=== PATIENT | female | born 1945 | race Caucasian/White ===

== ENCOUNTER 2019-01-14 06:47 | Inpatient (IN) ==
[2019-01-14] MEDS ORDERED: ASPIRIN PO ONE (07:39)
--- NOTE | 2019-01-14 08:03 | Diag Imaging Result Doc PS360 ---
EXAM: CHEST-2 VIEWS HISTORY: CP TECHNIQUE: Chest two views COMPARISON: 07/19/2016 FINDINGS: The lungs are well expanded. The heart is borderline mildly prominent. The vessels are not distended. There are no infiltrates. No pleural effusions. There is a granuloma in the mid right lung. Degenerative bone spurring throughout the thoracic spine. IMPRESSION: Mildly prominent heart Electronically signed by Kirby Meneses 01/14/2019 8:01 AM
[2019-01-14 08:37] LABS: BASO# 0.01 X1000 (0.0-0.2); BASO% 0.2 % (0.0-0.8); EOS# 0.01 X1000 (0.0-0.7); EOS% 0.2 % (0.0-10.0); HEMATOCRIT 31.3 % (37.0-47.0); HEMOGLOBIN 10.4 g/dL (12.0-16.0); IMM GRAN# 0.03 X1000 (0.0-0.04); IMM GRAN% 0.5 % (0.0-0.5); LYMPH# 1.57 X1000 (1.2-3.4); LYMPH% 25.4 % (20.5-51.1); MCH 28.7 PG (27-31); MCHC 33.2 g/dL (33-37); MCV 86.5 FL (81-99); MONO% 17.8 % (1.7-9.3); MPV 10.5 FL (7.4-10.4); NEUT# 3.46 X1000 (1.4-6.5); NEUT% 55.9 % (42.2-75.2); PLT 118 X1000 (130-400); RBC 3.62 XMIL (4.2-5.4); RDW 13.3 % (11.5-14.5); WBC 6.18 X1000 (4.8-10.8)
[2019-01-14 08:45] LABS: INR 0.98; PROTIME 13.7 Seconds (11.0-16.0)
[2019-01-14 08:46] LABS: PTT 42.5 Seconds (22.3-41.8)
[2019-01-14 09:16] LABS: ALB/GLOB RATIO 2.3; ALBUMIN 4.2 g/dL (3.5-5.0); CALCIUM 9.1 mg/dL (8.8-10.2); POTASSIUM 4.3 mmol/L (3.5-5.1); TOTAL BILIRUBIN 0.49 mg/dL (0.20-1.00)
--- NOTE | 2019-01-14 09:18 | EKG Report ---
Test Performed on : 01/14/2019 08:24:08 AM Test Reason : CHEST PAIN Blood Pressure : / mmHG Vent. Rate : 062 BPM Atrial Rate : 062 BPM P-R Int : 186 ms QRS Dur : 122 ms QT Int : 470 ms P-R-T Axes : 034 -36 -26 degrees QTc Int : 477 ms Normal sinus rhythm. Left axis deviation Left ventricular hypertrophy with QRS widening and repolarization abnormality Abnormal ECG When compared with ECG of 29-JUN-2016 11:13, Vent. rate has decreased BY 44 BPM T wave inversion now evident in Inferior leads T wave inversion now evident in Anterior leads T wave inversion no longer evident in Lateral leads Unconfirmed Result
[2019-01-14] MEDS ORDERED: NS 2,000 ML MISC PRN (10:44)
[2019-01-14] MEDS ORDERED: HEPARIN IV PRN (10:44)
--- NOTE | 2019-01-14 11:21 | PROVIDER DOCUMENTATION ---
This chart was entered by Neo Mojica Scribe, acting as scribe for Ruchi Lynch MD. HPI-Chest Pain - General Source: patient - History of Present Illness-CP Chest Pain Radiation: reports: no radiation Quality of Pain: reports: sharp Severity in ED: mild Onset/Duration: other (yesterday) Timing: gone now <Ruchi Lynch - Last Filed: 01/14/19 11:21> <Adrian Reynolds - Last Filed: 01/14/19 17:35> - General Chief Complaint: Chest Pain Stated Complaint: cp Time Seen by Provider: 01/14/19 08:09 Allergies/Adverse Reactions: Patient Allergies Allergy/AdvReac Type Severity Reaction Status Date / Time zinc [Zinc] Allergy Intermediate HIVES Verified 05/29/13 11:42 Penicillins Allergy Unknown Unknown Verified 05/29/13 11:42 Home Medications: Home Medication List Medication Instructions Recorded Confirmed Last Taken Type Pantoprazole [Protonix] 40 mg PO DAILY@0700 06/28/16 06/28/16 06/28/16 07:00 History Benzonatate [Tessalon] 100 mg PO TID #0 capsule 07/21/16 Unknown Rx Calcium Acetate [Phoslo] 667 mg PO TID CC #0 tablet 07/21/16 Unknown Rx Docusate Sodium [Colace] 100 mg PO BID #0 capsule 07/21/16 Unknown Rx Ertapenem [Invanz] 0.5 gm IV DAILY #2 g 07/21/16 Unknown Rx Guaifenesin/Dm [Robitussin-Dm] 10 ml PO Q4H PRN PRN #0 bottle 07/21/16 Unknown Rx Levalbuterol Neb [Xopenex Neb] 0.63 mg INH RTQ4H #0 neb 07/21/16 Unknown Rx Levothyroxine [Synthroid] 50 microgm PO DAILY@0700 #0 tablet 07/21/16 Unknown Rx Polyethylene Glycol 3350 [Miralax] 17 gm PO DAILY #0 powder, packet 07/21/16 Unknown Rx Sennosides [Senokot] 1 each PO BID #0 tablet 07/21/16 Unknown Rx Tramadol [Ultram] 50 mg PO Q6H PRN PRN #20 tablet 07/21/16 Unknown Rx - History of Present Illness-CP Nature of Presenting Problem: 73 yof presents to ed with c/o of midsternal sharp cp yesterday at 1400. Reports had diaphoresis. States pain is gone now and it only last about 3 to 4 minutes yesterday. States went to dialysis this morning and they encouraged her to come get it checked out. Denies any n,v,sob or cp at this time. (Ruchi Lynch) Review of Systems - Adult - REVIEW OF SYSTEMS - ADULT Constitutional: reports: other (diaphoresis). denies: chills, fever, fatique Eyes: reports: no symptoms reported Ears, Nose, Mouth & Throat: reports: no symptoms reported Cardiovascular: reports: chest pain. denies: irregular heart rate, orthopnea, syncope Respiratory: denies: cough, shortness of breath, wheezing Gastrointestinal: denies: abdominal pain, nausea, vomiting Genitourinary: reports: no symptoms reported Musculoskeletal: reports: no symptoms reported Integumentary: reports: no symptoms reported Neurological: denies: dizziness/vertigo, headache/migraines Psychiatric: reports: no symptoms reported Endocrine: reports: no symptoms reported Hematologic/Lymphatic: reports: no symptoms reported Allergic/Immunologic: reports: no symptoms reported All Other Systems: Reviewed and Negative <Ruchi Lynch - Last Filed: 01/14/19 11:21> Past History - Adult - PAST MEDICAL HISTORY-ADULT Review of Records: reports: Nursing Assessment Review, Medications Reviewed Cardiovascular: reports: HTN Endocrine/Immune: reports: Diabetes - PRIOR SURGERIES/PROCEDURES Surgical/Procedure History: reports: cholecystectomy, hysterectomy - IMMUNIZATION STATUS Childhood Immunizations: See Nurse Assessment Flu Vaccine: See Nurse Assessment - FAMILY HISTORY Family History: reviewed, not pertinent - SOCIAL HISTORY Smoking: non-smoker Substance Use: none/never <Ruchi Lynch - Last Filed: 01/14/19 11:21> Physical Exam-General - PHYSICAL EXAM-ADULT Initial Vital Signs Reviewed: Yes - CONSTITUTIONAL General Appearance: appears well, alert, no apparent distress - EYES Eyes: PERRL/EOMI, pink conjunctivae - NECK Neck: non-tender, full range of motion, supple, normal inspection - RESPIRATORY Respiratory: chest non-tender, lungs clear, normal breath sounds, no pleuratic chest pain, no respiratory distress, no accessory muscle use - CARDIOVASCULAR Cardiovascular: regular rate, rhythm, no edema, no gallop, no JVD, no murmur - GASTROINTESTINAL (ABDOMEN) Abdominal Exam: non tender, soft, no organomegaly, no pulsatile mass - MUSCULOSKELETAL Extremity: normal range of motion, pedal edema (1+ pitting BLE) - SKIN Integumentary: normal color, normal turgor, warm/dry - NEUROLOGIC Neurologic: grossly normal - PSYCHIATRIC Psych/Mental Status: normal mood/affect, normal thought content, normal thought process, oriented x 3 <Ruchi Lynch - Last Filed: 01/14/19 11:21> Progress - EKG 1 Time of EKG reading by physician:: 08:24 EKG Read and Signed by:: Ruchi Lynch EKG Interpretation (*Must complete 3 of following elements*): Abnormal Rate: 62 Rhythm: nsr Leon: left QRS: LVH (with QRS widening and repolarization abnormality) ST Wave: normal - XRAY 1 XRAY: Bilateral XRAY Study: Chest Impression: Abnormal, See EMR Report ( EXAM: CHEST-2 VIEWS HISTORY: CP TECHNIQUE: Chest two views COMPARISON: 07/19/2016 FINDINGS: The lungs are well expanded. The heart is borderline mildly prominent. The vessels are not distended. There are no infiltrates. No pleural effusions. There is a granuloma in the mid right lung. Degenerative bone spurring throughout the thoracic spine. IMPRESSION: Mildly prominent heart Electronically signed by Kirby Meneses 01/14/2019 8:01 AM 01/14/19 0801 Interpreting Physician: Kirby Meneses MD Dictated Date/Time: 01/14/19 0800 cc: Yolanda Tejada MD; Georgina Calderon) <Ruchi Lynch - Last Filed: 01/14/19 11:21> - PLAN OF CARE/RESULTS Result Diagrams: 01/14/19 08:25 01/14/19 08:25 - CT/MRI 1 CT Study: Abdomen, Pelvis Impression: Abnormal (FINDINGS: There is a common bile duct stent with pneumobilia. There is fatty infiltration. The gallbladder has been removed. There are scattered splenic granuloma. Fatty infiltration of the pancreas. Normal adrenal glands. There is a tiny nonobstructing left lower pole renal stone and there are small scattered renal cysts. No hydronephrosis. No aortic aneurysm. There is stool throughout the mid and distal colon. Questionable thickening to the wall of the proximal colon although it is not distended. No abscess. The uterus has been removed. No pelvic mass. The urinary bladder is distended and is normal. There are degenerative spine changes with multilevel spinal stenosis inferiorly. IMPRESSION: 1.Fatty infiltration of the liver 2.Cholecystectomy with a common bile duct stent and pneumobilia 3.Nonobstructing left renal stone 4.Possible thickening to the wall of the proximal colon 5.Hysterectomy This exam was performed using automated exposure control, adjustment of mA or kV according to patient size, and/or use of iterative reconstruction technique. Electronically signed by Kirby Meneses 01/14/2019 4:28 PM) - CONSULTS/PCP/HOSPITALIST Notification #1 *Consult/PCP/Hospitalist*: Dr. Clemente Time Discussed: 17:35 Reason/Comments: Admission <Adrian Reynolds - Last Filed: 01/14/19 17:35> - PLAN OF CARE/RESULTS Progress/Plan/Lab Results: Vital Signs - 8 hr 01/14/19 09:40 01/14/19 09:50 01/14/19 10:00 Pulse Rate 64 61 61 Respiratory Rate 24 18 18 Blood Pressure O2 Sat by Pulse Oximetry 98 97 96 01/14/19 10:03 01/14/19 10:10 01/14/19 10:20 Pulse Rate 66 67 62 Respiratory Rate 26 H 20 19 Blood Pressure 146/73 O2 Sat by Pulse Oximetry 98 97 98 01/14/19 10:30 01/14/19 10:33 01/14/19 10:40 Pulse Rate 64 63 63 Respiratory Rate 16 17 19 Blood Pressure 150/70 O2 Sat by Pulse Oximetry 97 98 97 01/14/19 10:50 01/14/19 11:00 01/14/19 11:03 Pulse Rate 64 67 63 Respiratory Rate 32 H 16 17 Blood Pressure 147/72 O2 Sat by Pulse Oximetry 96 99 98 01/14/19 11:10 01/14/19 11:20 01/14/19 11:30 Pulse Rate 62 62 66 Respiratory Rate 17 19 22 Blood Pressure O2 Sat by Pulse Oximetry 97 98 99 01/14/19 11:33 01/14/19 12:03 01/14/19 16:14 Pulse Rate 64 83 71 Respiratory Rate 24 20 15 Blood Pressure 142/66 175/120 146/60 O2 Sat by Pulse Oximetry 96 97 90 L 01/14/19 16:15 Pulse Rate 71 Respiratory Rate 18 Blood Pressure O2 Sat by Pulse Oximetry 100 Laboratory Results - last 24 hr 01/14/19 01/14/19 01/14/19 08:25 08:25 08:25 WBC 6.18 RBC 3.62 L Hgb 10.4 L Hct 31.3 L MCV 86.5 MCH 28.7 MCHC 33.2 RDW Std Deviation 13.3 Plt Count 118 L MPV 10.5 H Immature Gran % (Auto) 0.5 Neut % (Auto) 55.9 Lymph % (Auto) 25.4 [place] % (Auto) 17.8 H Eos % (Auto) 0.2 Baso % (Auto) 0.2 Immature Gran # (Auto) 0.03 Neut # (Auto) 3.46 Lymph # (Auto) 1.57 [place] # (Auto) 1.10 H Eos # (Auto) 0.01 Baso # (Auto) 0.01 PT INR PTT (Actin FS) Sodium 142 Potassium 4.3 Chloride 106 Carbon Dioxide 24 L Anion Gap 12 BUN 27 H Creatinine 3.0 H Estimated GFR/1.73 m2 15 BUN/Creatinine Ratio 9 Glucose 156 H Calculated Osmolality 291 Calcium 9.1 Total Bilirubin 0.49 AST 786 H ALT 583 H Alkaline Phosphatase 185 H Creatine Kinase 45 Troponin T Ovq-F-Awjxnfucyhw Pept 4001 H Total Protein 6.0 L Albumin 4.2 Globulin 1.8 Albumin/Globulin Ratio 2.3 01/14/19 01/14/19 08:25 08:25 WBC RBC Hgb Hct MCV MCH MCHC RDW Std Deviation Plt Count MPV Immature Gran % (Auto) Neut % (Auto) Lymph % (Auto) [place] % (Auto) Eos % (Auto) Baso % (Auto) Immature Gran # (Auto) Neut # (Auto) Lymph # (Auto) [place] # (Auto) Eos # (Auto) Baso # (Auto) PT 13.7 INR 0.98 PTT (Actin FS) 42.5 H Sodium Potassium Chloride Carbon Dioxide Anion Gap BUN Creatinine Estimated GFR/1.73 m2 BUN/Creatinine Ratio Glucose Calculated Osmolality Calcium Total Bilirubin AST ALT Alkaline Phosphatase Creatine Kinase Troponin T < 0.010 Szi-E-Tzydepmwybk Pept Total Protein Albumin Globulin Albumin/Globulin Ratio Orders Category Date Time Status Cardiac Monitoring DIRECTED Care 01/14/19 07:39 Active Dialysate Bath: DIRECTED Care 01/14/19 10:44 Completed Dialysate Flow: DIRECTED Care 01/14/19 10:44 Completed Dialysis Blood Flow: DIRECTED Care 01/14/19 10:44 Completed Dialysis Machine Settings: DIRECTED Care 01/14/19 10:44 Completed Dialysis Treatment Time: DIRECTED Care 01/14/19 10:44 Completed Dialysis Treatment Weight ROUTINE Care 01/14/19 10:44 Active Dialysis UF Removal Amount: DIRECTED Care 01/14/19 10:44 Completed Dialyzer Type: DIRECTED Care 01/14/19 10:44 Completed NRSG - Obtain Dialysis Consent NOW Care 01/14/19 10:44 Completed Oxygen Therapy- ED Nursing DIRECTED Care 01/14/19 07:39 Active Saline Loc NOW Care 01/14/19 07:39 Active CHEST-2 VIEWS [RAD] Stat Exams 01/14/19 07:[address] ABDOMEN/PELVIS W/O CONTRAST [CT] Stat Exams 01/14/19 16:09 Completed CBC WITH ELECTRONIC DIFF [HEME] Stat Lab 01/14/19 08:25 Completed CK PROFILE [SP CHEM] Stat Lab 01/14/19 08:25 Completed COMPREHENSIVE METABOLIC PANEL [CHEM] Stat Lab 01/14/19 08:25 Completed PRO B-NATRIURETIC PEPTIDE Stat Lab 01/14/19 08:25 Completed PROTIME WITH INR [COAG] Stat Lab 01/14/19 08:25 Completed PTT [COAG] Stat Lab 01/14/19 08:25 Completed TROPONIN T Stat Lab 01/14/19 08:25 Completed TROPONIN T Stat Lab 01/14/19 17:33 Uncollected 0.9% Sodium Chloride Inj [Ns] 2,000 ml Med 01/14/19 10:44 Discontinued MISC As Directed mls/hr Aspirin Med 01/14/19 07:39 Discontinued 325 mg PO NOW ONE Heparin Med 01/14/19 10:44 Discontinued 3,000 unit IV BOLUS PRN CP/SOB/Palp >45 yrs of Age Stat Oth 01/14/19 07:39 Ordered EKG [EKG] Stat Ther 01/14/19 06:49 Draft Departure <Ruchi Lynch - Last Filed: 01/14/19 11:21> - Departure Date of Disposition Decision: 01/14/19 Time of Disposition Decision: 17:35 Certified Medical Emergency: Emergent - Critical Care Note This patient required my direct & personal management of CC.: No <Adrian Reynolds - Last Filed: 01/14/19 17:35> - Departure DIAGNOSIS: Transaminitis Disposition: ADMITTED INPATIENT 09 Condition: Stable Referrals and Follow-Ups: Georgina Calderon [Primary Care Provider] - Attestation - Physician/ WANDA Attestation Patient care was provided by Advanced Practice Provider:: No The physician spent face to face time with patient:: Yes Advanced Practice Provider documentation review:: Supervising physician onsite and consulted in the evaluation and care of this patient. The physician did have a face to face encounter with the patient. <Ruchi Lynch - Last Filed: 01/14/19 11:21> This chart was documented by the indicated scribe, (Neo Mojica Scribe) and accurately reflects the services I performed and decisions made by me, Ruchi Lynch MD, as attested by the provider's signature.
--- NOTE | 2019-01-14 15:03 | NEPHROLOGY CONSULTATION ---
DATE: 01/14/2019 REASON FOR ADMISSION: Chest pain. DATE OF CONSULT: 01/14/2019. CONSULTING PHYSICIAN: Consulting physician is. Lynch. REASON FOR CONSULT: End-stage renal disease with assistance with medical management. HISTORY OF PRESENT ILLNESS: Ms. Hill is a 73-year-old white female who is currently resting quietly on a stretcher. States that she had some chest pain this morning upon arrival to her dialysis treatment. Due to these findings, she was transferred to [facility] for monitoring and evaluation. She states that this has been ongoing coming and going with a previous echo that was essentially negative approximately 3 months ago. She has been evaluated by Dr. Lynch. They are currently doing serial enzymes with EKGs. Chest x-ray was essentially negative. She described this midsternal chest pain with onset yesterday at 2 p.m. She reports that she did have some diaphoresis. The pain is gone. It lasted approximately 3 to 4 minute yesterday and only 3 to 4 minutes this a.m. She denies any fever or chills. No nausea, vomiting or diarrhea. No increased work of breathing. No increased lower extremity swelling. No hemoptysis, hematochezia or hematuria. PAST MEDICAL HISTORY: End-stage renal disease with hemodialysis on Monday, Monday, Monday at the [facility]. The patient is positive for anemia of chronic disease, osteodystrophy of chronic disease, hypertension, hyperlipidemia, hypothyroidism, constipation, chronic pain. PAST SURGICAL HISTORY: She reports having a cholecystectomy, hysterectomy, right tunnel catheter to the right chest wall. FAMILY HISTORY: No history of end-stage renal disease. SOCIAL HISTORY: She lives with her family. Nonsmoker. Denies alcohol or illicit drug use. ALLERGIES: Listed as zinc and penicillins. HOME MEDICATIONS: Have yet to be reconciled. Listed in the ER asL Protonix, Tessalon Perles, PhosLo, Colace, Invanz, Robitussin DM, Xopenex, Synthroid MiraLAX, Senokot and Ultram. REVIEW OF SYSTEMS: Review of systems x 10 with pertinent positives listed above in the HPI. VITAL SIGNS: The patient's most recent vital signs this a.m.: Previous temperature of 98.6, blood pressure this a.m. 142/77, heart rate is 63. She is breathing 14 per minute on the monitor. She appears to be in sinus rhythm. She is on room air. Last recorded saturation is 96%. She has had 0 recorded in or out. LABORATORY: Her most recent labs this a.m.: Sodium is 142, potassium 4.3, chloride 106, CO2 24, BUN 27, creatinine 3, glucose is 156. She has an anion gap of 12. Her calcium is 9.1, albumin of 4.2. White count 6.18, hemoglobin 10.4, hematocrit 31.3 with a platelet count of 118,000. Her ProTime is 13.7, INR 0.98, PTT 42.5. Chest x-ray on admission this a.m. shows mildly prominent heart. EKG this a.m. shows normal sinus rhythm. She does have slight T-wave inversion in the inferior leads and anterior leads, along with lateral leads. PHYSICAL EXAMINATION: General: This is a 73-year-old white female resting quietly on a stretcher in the emergency room. She denies any chest pain or increased work of breathing. She is in no acute distress. Skin: Warm and dry. HEENT: Normocephalic, atraumatic. Conjunctiva is pale pink she has JERAMY. Mucous membranes are dry. Neck: Supple. Trachea midline. No evidence of JVD in the upright position. Cardiovascular: She has sinus rhythm on the monitor, S1, S2 noted. No murmur or gallop. Lungs: Clear to auscultation anteriorly. Equal excursion on room air. Abdomen: Large, round, soft, nontender. Positive bowel sounds. Genitourinary not inspected. Minimal void with dialysis assist. Extremities: Have no edema. No clubbing or cyanosis. Neurologic: She is alert and oriented x 3. ASSESSMENT AND PLAN: 1. Chronic kidney disease stage 5D. The patient is due for her routine dialysis treatment this a.m. No indications for further intervention. We will dialyze her on a 2 K bath. She is to dialyze for 3 hours. We will attempt to pull her to her outpatient dry weight. 2. Electrolytes and acid-base balance. These are acceptable. 3. Anemia. This is acceptable. 4. Chest pain with increased work of breathing. This is being monitored and evaluated by the primary care in the emergency room. I would like to thank you for allowing us to follow with this patient. Dictated by SALVATORE Ramirez for Leonidas Howard MD Face to face encounter, data reviewed, discussed with Tabatha Joyce on 01/14/19. I agree with the above assessment and plan of care. cc: SALVATORE Ramirez MD [facility]
--- NOTE | 2019-01-14 16:30 | Diag Imaging Result Doc PS360 ---
EXAM: CT ABDOMEN/PELVIS W/O CONTRAST HISTORY: elevated LFTs, ap TECHNIQUE: CT abdomen and pelvis without contrast COMPARISON: 06/28/2016 FINDINGS: There is a common bile duct stent with pneumobilia. There is fatty infiltration. The gallbladder has been removed. There are scattered splenic granuloma. Fatty infiltration of the pancreas. Normal adrenal glands. There is a tiny nonobstructing left lower pole renal stone and there are small scattered renal cysts. No hydronephrosis. No aortic aneurysm. There is stool throughout the mid and distal colon. Questionable thickening to the wall of the proximal colon although it is not distended. No abscess. The uterus has been removed. No pelvic mass. The urinary bladder is distended and is normal. There are degenerative spine changes with multilevel spinal stenosis inferiorly. IMPRESSION: 1.Fatty infiltration of the liver 2.Cholecystectomy with a common bile duct stent and pneumobilia 3.Nonobstructing left renal stone 4.Possible thickening to the wall of the proximal colon 5.Hysterectomy This exam was performed using automated exposure control, adjustment of mA or kV according to patient size, and/or use of iterative reconstruction technique. Electronically signed by Kirby Meneses 01/14/2019 4:28 PM
--- NOTE | 2019-01-14 19:01 | HISTORY AND PHYSICAL ---
CHIEF COMPLAINT: Epigastric pain. HISTORY OF PRESENT ILLNESS: This is a 73-year-old female with a history of end- stage renal disease, on hemodialysis, diabetes mellitus type 2, hypertension, and hypothyroid. She presented to the emergency room on the instruction of the dialysis clinic. The patient stated that yesterday evening, she was sitting in a chair and had an onset of epigastric pain. She said it felt like "I was all cramped up in there". She pointed to her epigastric area to her right upper quadrant. She stated that this lasted 3 to 4 minutes. She had no accompanying symptoms. She did state that she took 2 Tums and the pain went away within a few minutes after taking the Tums. She denies any recurrence of pain, any palpitations, syncope, dizziness, any fevers or chills, any nausea, vomiting, diarrhea, black or bloody vomitus or stools. PAST MEDICAL HISTORY: 1. End-stage renal disease, with hemodialysis Monday, Monday, Monday. 2. Anemia of chronic disease. 3. Osteodystrophy of chronic disease. 4. Hypertension. 5. Hyperlipidemia. 6. Hypothyroid. 7. Constipation. 8. Chronic pain. PAST SURGICAL HISTORY: 1. Cholecystectomy. 2. Hysterectomy. 3. Right tunnel catheter. SOCIAL HISTORY: She lives with family. She denies alcohol, tobacco, or illicit drug use. ALLERGIES: Zinc and penicillin. HOME MEDICATIONS: A list will be obtained by the nursing staff and once verified, will review and restart as appropriate. REVIEW OF SYSTEMS: Discussed with the patient with pertinent positives as stated in the HPI. She denied any syncope, dizziness, palpitations, any nausea, vomiting, diarrhea, constipation, black or bloody vomitus or stools, any hematuria, dysuria, frequency, urgency. PHYSICAL EXAMINATION: GENERAL: This is a 73-year-old female who is lying on the stretcher in no distress. VITAL SIGNS: Blood pressure is 146/60 with a heart rate of 71, respirations are 18, temperature is 98.6 degrees, with O2 saturations 98 to 100 percent. HEENT: Eyes: Pupils are equal, round, and react to light. EOMs are intact. Sclerae are anicteric. Head is normocephalic, atraumatic. Mucous membranes are dry. NECK: Supple with trachea midline. CARDIOVASCULAR: Regular rate and rhythm. S1 and S2 appreciated. No murmur. No gallop. EXTREMITIES: She has no lower extremity edema. Bilateral calves are nontender to palpation. Peripheral pulses are palpable x4 extremities. PULMONARY: Breath sounds are clear with no increased work of breathing noted. Chest rises and falls symmetrically with respiration. Chest wall is nontender to palpation. GASTROINTESTINAL: Abdomen is soft. She has some epigastric tenderness to palpation. She is nondistended with bowel sounds in all 4 quadrants. GENITOURINARY: She has no CVA nor suprapubic tenderness. NEUROLOGIC: She is alert and oriented x3. SKIN: Warm and dry. LABS: WBC is 6.1 with hemoglobin 10.4, hematocrit 31.3, and platelets of 118,000. INR 0.98. Sodium 142, potassium 4.3, BUN 27, creatinine 3, with a glucose of 156. Total bilirubin is 0.49, AST 786, ALT 583, and alkaline phosphatase 185. Troponin is less than 0.010, with a proBNP of 4000. Chest x-ray reveals mildly prominent heart. CT of the abdomen and pelvis reveals fatty infiltration of the liver, cholecystectomy, with a common bile duct stent and pneumobilia, nonobstructing left renal stone, possible thickening to the wall of the proximal colon, and hysterectomy. ASSESSMENT AND PLAN: 1. Epigastric pain. The patient stated that she had chest pain on arrival to the emergency room, but when asked to point to the area of the pain, she points epigastric. She is tender to palpation. Her first troponin was negative. Stat cardiac profile and troponin now and repeat in 8 hours. Continue her home proton pump inhibitor. 2. Hypothyroid. We will check a TSH and once medications are identified, will continue. 3. Diabetes mellitus type 2. Place on patterned blood glucose with sliding scale insulin. 4. Hypertension. Will continue her medication as appropriate. 5. Hyperlipidemia. The patient is on Crestor as she did have elevated liver function tests. We will hold this at present. 6. Elevated liver function tests. Will continue with hydration. Will hold her Crestor. Repeat labs in the morning. 7. End-stage renal disease, on Monday, Monday, Monday hemodialysis. Further treatments pending hospital course. Dictated by SALVATORE Morgan for Sae Clemente MD cc: SALVATORE Morgan MD [facility]
--- NOTE | 2019-01-14 19:52 | HISTORY AND PHYSICAL ---
WNOX-AM-NROD ENCOUNTER: Ms. Leatha Hill is a 73-year-old female, who has a history of multiple medical conditions, including end-stage renal disease, hypertension, hyperlipidemia, hypothyroidism as well as chronic pain. The patient was admitted to the ED because of chest pain which seemed to be more like epigastric pain. She did have hemodialysis earlier today. EXAMINATION: Vital Signs: Blood pressure is 146/68, pulse is 71, respiratory rate is 15, temperature 98.6. Cardiovascular: S1, S2 with possible systolic murmur. Respiratory: Good air entry bilaterally. No rales or rhonchi noted. Abdomen: Soft, nontender. No masses felt. LABORATORY DATA: Initial troponin less than 0.01, proBNP level is 4001. AST is 786, ALT 585, alkaline phosphatase 185. ASSESSMENT: 1. Atypical chest pain. 2. Abnormal liver function test. 3. End-stage renal disease, on hemodialysis. 4. Hypothyroidism. 5. Hyperlipidemia. PLAN: 1. With regards to her chest pain, we will place her on telemetry, get serial cardiac enzymes. The patient did have a recent exercise cardiac stress test done May 2018 which was normal, consider cardiology evaluation. 2. With regards to abnormal LFTs obtain a hepatitis panel, HAYDEN level, ferritin level, and also abdominal ultrasound. All other medical conditions will be addressed accordingly. cc: Sae Clemente MD MTDD
[2019-01-14] MEDS: ATARAX PO SCH (21:37)
[2019-01-14] MEDS: HUMALOG SUBQ SCH (21:38)
[2019-01-14] MEDS: PROTONIX PO SCH (21:38)
[2019-01-14] MEDS ORDERED: TYLENOL PO ONE (21:52)
[2019-01-15] MEDS: HUMALOG SUBQ SCH ×4 (06:23→21:56)
[2019-01-15] MEDS: SYNTHROID PO SCH (06:23)
--- NOTE | 2019-01-15 07:04 | EKG Report ---
Test Performed on : 01/15/2019 06:48:20 AM Test Reason : cp, epigastric pain Blood Pressure : / mmHG Vent. Rate : 064 BPM Atrial Rate : 064 BPM P-R Int : 184 ms QRS Dur : 120 ms QT Int : 486 ms P-R-T Axes : 041 -39 026 degrees QTc Int : 501 ms Normal sinus rhythm. Left axis deviation Left ventricular hypertrophy with QRS widening Cannot rule out Septal infarct , age undetermined Abnormal ECG When compared with ECG of 14-JAN-2019 08:24, (Unconfirmed) T wave inversion less evident in Inferior leads Nonspecific T wave abnormality, worse in Lateral leads Confirmed by Sukhdev VELASQUEZ, Chuy Koo ([id number]) on 01/15/2019 9:07:12 AM
[2019-01-15 07:16] LABS: HEMATOCRIT 32.7 % (37.0-47.0); HEMOGLOBIN 10.6 g/dL (12.0-16.0); MCH 28.6 PG (27-31); MCHC 32.4 g/dL (33-37); MCV 88.4 FL (81-99); MPV 10.9 FL (7.4-10.4); RBC 3.7 XMIL (4.2-5.4); RDW 13.3 % (11.5-14.5); WBC 4.98 X1000 (4.8-10.8)
[2019-01-15 07:42] LABS: CALCIUM 8.4 mg/dL (8.8-10.2); CREATININE 2.7 mg/dL (0.5-0.9); PHOSPHORUS 2.9 mg/dL (2.7-4.5); POTASSIUM 3.3 mmol/L (3.5-5.1)
[2019-01-15 08:10] LABS: URINE SOURCE CLEAN CATCH
[2019-01-15 08:15] LABS: BILIRUBIN URINE NEGATIVE (NEGATIVE); BLOOD URINE MODERATE (NEGATIVE); COLOR YELLOW; GLUCOSE URINE NEGATIVE (NEGATIVE); KETONE URINE NEGATIVE (NEGATIVE); LEUKOCYTES URINE LARGE (NEGATIVE); NITRITE URINE NEGATIVE (NEGATIVE); PH URINE 7.5; PROTEIN URINE 50 mg/dL (NEGATIVE); SP GRAVITY URINE 1.014; TURBIDITY URINE HAZY (CLEAR); UROBILINOGEN URINE 4 mg/dL (NORMAL)
[2019-01-15 08:17] LABS: UR EPITHELIAL CELLS <10 /HPF (<10); URINE BACTERIA 4+ /HPF; URINE RBC <10 /HPF (<10); URINE WBC TNTC /HPF (<10)
[2019-01-15] MEDS: FLONASE NAS SCH (09:36)
[2019-01-15] MEDS: PROTONIX PO SCH ×3 (09:37→21:57)
--- NOTE | 2019-01-15 10:27 | GASTROENTEROLOGY CONSULTATION ---
DATE: 01/15/2019 REASON FOR CONSULTATION: Substernal chest pain, abnormal LFTs. HISTORY OF PRESENT ILLNESS: Ms. Leatha Hill is a 73-year-old woman with past medical history significant for hypertension, end-stage renal disease on hemodialysis, noninsulin-dependent diabetes, hyperlipidemia, hypothyroidism, anemia of chronic disease, status post cholecystectomy, history of colon polyps, and atypical chest pain, who presented with acute chest pain that started while walking in the mall on Monday afternoon. She describes having substernal chest pressure, like squeezing, with associated shortness of breath and dizziness while walking in the mall on Mother's Day. She said the pain lasted for approximately 12 to 15 minutes. She has had 3 episodes that have been similar in the last 2 weeks. Her pain is sometimes improved with taking Tums. She has been seen by Cardiology in the past, and had a normal stress test last year, and was told that her symptoms are likely related to reflux disease. She denies any nausea, vomiting, fevers, change in bowel habits, rectal bleeding, melena. She had a fall a couple of weeks ago, and has some residual left shoulder pain. She denies any myalgias, headaches. No recent changes to her medications. No herbal or supplement use. No alcohol. She had a CT scan done on admission that shows pneumobilia and the presence of a common bile duct stent, which the patient reports not being aware of. She does say that within the last 3 years, she had a procedure done to bust up gallstones at [facility]. Presumably, this was an ERCP. REVIEW OF SYSTEMS: As per HPI, otherwise a 12-point review of systems is negative. PAST MEDICAL HISTORY: As per HPI. She also has chronic constipation and chronic pain. PAST SURGICAL HISTORY: Cholecystectomy, hysterectomy, left upper extremity fistula, fibroid surgery. FAMILY HISTORY: No family history of GI diseases. Her daughter of ovarian cancer. SOCIAL HISTORY: No smoking, alcohol, or drug use. MEDICATIONS: Crestor, fluticasone, levothyroxine, Tums, Tessalon pearls, Protonix, PhosLo, Colace, Invanz, Senokot, and Ultram. ALLERGIES: Penicillin and zinc. PHYSICAL EXAMINATION: Vital Signs: Temperature is 98 degrees, heart rate 65, respiratory rate 17, blood pressure 103/53, O2 saturation 95% on room air. General: The patient is awake, alert, oriented. No acute distress. HEENT: Sclerae anicteric. Moist mucous membranes. Extraocular motor intact. Neck: Supple. No JVD. No lymphadenopathy. Cardiac: Regular rate and rhythm. No murmurs, rubs, or gallops. Lungs: Clear to auscultation bilaterally. No wheezing. Abdomen: Soft, nontender, nondistended. Normoactive bowel sounds. No rebound or guarding. No right upper quadrant pain. Negative Carrasquillo's. Extremities: No clubbing, cyanosis, or edema. He has a palpable thrill in the left upper extremity fistula site. Neurologic: Nonfocal. LABORATORY DATA: White count of 4.98, hemoglobin 10.6, platelets of 112,000. INR 0.98. Sodium 140, potassium 3.3, chloride 98, bicarb 28, BUN 17, creatinine of 2.7, glucose of 103, calcium 8.4. Phosphorus of 2.9. LFTs notable for total bilirubin of 0.49, AST of 786, ALT of 583, alkaline phosphatase of 185. Creatine kinase of 45. Negative troponin. ProBNP of 4001. Total protein of 6.0, albumin of 4.2, TSH of 1.19. UA shows pyuria with moderate blood and protein. IMAGING: CT of abdomen and pelvis without contrast shows fatty infiltration of the liver, cholecystectomy with a common bile duct stent and pneumobilia, nonobstructing left renal stone, possible thickening of the wall of the proximal colon, status post hysterectomy. ASSESSMENT AND PLAN: Ms. Leatha Hill is a 73-year-old woman with hypertension, end-stage renal disease on hemodialysis, noninsulin-dependent diabetes, anemia of chronic disease, status post cholecystectomy, and history of gallstones s/p probable ERCP with CBD stent placement who presents with atypical chest pain. She has a history of recurrent chest pain that has been worked up by Cardiology in the past with a negative stress test within the last year. She does say that her symptoms get better with Tums, which would be consistent with acid reflux. Notable findings of CT shows a common bile duct stent and pneumobilia. It is unclear how long that stent has been there. The patient had a CT done here in 2016 that did not show a stent within the CBD. She has notable liver function test abnormalities with a hepatocellular injury pattern. She has had a negative acute hepatitis panel in the past. The primary team has currently sent off labs for HAYDEN and ferritin. The patient will likely need endoscopic retrograde cholangiopancreatography to remove the stent, and a cholangiogram. Will check a lipase to evaluate for pancreatitis, although this was not seen on CT. Will discuss timing of ERCP with Dr. Crespo in AM. We will start her on a renal diet currently. Antiemetics as needed. Atypical chest pain: Continue proton pump inhibitor by mouth twice daily for now. For her end-stage renal disease, she is on hemodialysis as per [facility] on [facility]. For hypothyroidism, continue her levothyroxine. For diabetes, she is on sliding scale insulin. Thank you for this consult. Will follow with you. Please call with any questions or concerns. MTDJacquelin
--- NOTE | 2019-01-15 12:59 | PROGRESS NOTE ---
DATE: 01/15/2019 SUBJECTIVE: This morning Ms. Hill refers to be doing a lot better. She said the chest pain, epigastric pain has resolved. OBJECTIVE: Vital signs: Blood pressure is 103/53, pulse is 65, respiration is 17, temperature 98 degrees. General: Ms. Hill is a 73-year-old female. She was in bed, in no distress. HEENT: Mucosa is pink and moist. Anicteric. Acyanotic. Neck: Supple. Chest: Clear to auscultation. There was no crepitations, no rhonchi. Cardiovascular: Regular rate and rhythm. No murmurs, no rubs, no gallops. Abdomen: Was soft, minimally tender in the epigastrium. Bowel sounds present. Extremities: No pedal edema. DRY KILN FEEDER: Patient is awake, alert, and oriented. LABORATORY DATA: WBC is 4.98, hemoglobin is 10.6, platelet count of 112,000 chemistry is also reviewed is completely unremarkable except for creatinine of 2.7. Patient has end-stage renal disease. INR is 0.98. ASSESSMENT: 1. Recurrent epigastric/chest discomfort. Complete cardiac workup 2018 was unremarkable. It appears this is gastrointestinal related. Gastroenterology has been consulted and we will wait on their further recommendations 2. 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 We will continue the workup. 3. Common bile duct stent with pneumobilia. There is a plan for removal of the stent. 4. Nonobstructing left renal stone. 5. Thickened wall of the proximal colon on the CT scan. Patient is currently asymptomatic except for some constipation. 6. Endstage renal disease on hemodialysis. cc: Dash Ambrosio MD MTDD
[2019-01-15 13:32] LABS: HEPATITIS PROFILE ACUTE SEE COMMENTS
--- NOTE | 2019-01-15 17:39 | Diag Imaging Result Doc PS360 ---
EXAM: US ABDOMEN-COMPLETE 01/15/2019 HISTORY: elevated lft, epigastric pain, common duct stent TECHNIQUE: Abdominal ultrasound COMMENT: The pancreas is unremarkable in appearance. The aorta is not distended. The inferior vena cava is unremarkable as seen. The liver is unremarkable in appearance. There is antegrade flow in the portal vein. The common bile duct measures 4 mm. The kidneys are without evidence of hydronephrosis. There are multiple cysts in the left kidney. There is an upper pole cyst on the right measuring up to 1.6 cm and the largest on the left is in the upper pole measuring 2 cm. Both kidneys are somewhat hyperechoic and atrophic in appearance. The spleen is not enlarged. The gallbladder is surgically absent. IMPRESSION: Renal atrophy and probable medical renal disease. Multiple renal cysts. No evidence of biliary obstruction. Electronically signed by Amadou Arevalo 01/15/2019 5:37 PM
[2019-01-15] MEDS: ATARAX PO SCH (21:57)
[2019-01-16] MEDS: HUMALOG SUBQ SCH ×4 (06:01→22:29)
[2019-01-16] MEDS: SYNTHROID PO SCH (06:02)
[2019-01-16 08:03] LABS: BASO# 0.01 X1000 (0.0-0.2); BASO% 0.2 % (0.0-0.8); EOS# 0.03 X1000 (0.0-0.7); EOS% 0.6 % (0.0-10.0); HEMOGLOBIN 10.6 g/dL (12.0-16.0); IMM GRAN# 0.05 X1000 (0.0-0.04); LYMPH% 39.1 % (20.5-51.1); MCH 28.5 PG (27-31); MCHC 32.1 g/dL (33-37); MCV 88.7 FL (81-99); MONO% 19.6 % (1.7-9.3); NEUT# 2.02 X1000 (1.4-6.5); NEUT% 39.5 % (42.2-75.2); PLT 116 X1000 (130-400); RBC 3.72 XMIL (4.2-5.4); RDW 13.4 % (11.5-14.5); WBC 5.11 X1000 (4.8-10.8)
[2019-01-16 08:35] LABS: ALB/GLOB RATIO 1.7; CALCIUM 8.5 mg/dL (8.8-10.2); CREATININE 3.3 mg/dL (0.5-0.9); POTASSIUM 3.6 mmol/L (3.5-5.1); TOTAL BILIRUBIN 0.46 mg/dL (0.20-1.00); TOTAL PROTEIN 6.4 g/dL (6.3-8.3)
[2019-01-16] MEDS ORDERED: HEPARIN IV PRN (10:39)
[2019-01-16] MEDS ORDERED: NS 2,000 ML MISC PRN (10:39)
[2019-01-16] MEDS ORDERED: XYLOCAINE-MPF 2% ONE (11:32)
[2019-01-16] MEDS ORDERED: DIPRIVAN 1% ONE (11:32)
[2019-01-16] MEDS ORDERED: FENTANYL ONE (11:46)
--- NOTE | 2019-01-16 13:06 | Diag Imaging Result Doc PS360 ---
EXAM: ERCP-BILIARY AND PANCREATIC INDICATION: Pancreatic head mass and Jaundice TECHNIQUE: COMPARISON: None. FINDINGS: Six spot fluoroscopic images were provided, which were performed during ERCP by Dr. Modi. The common bile duct is dilated and irregular. Three stones were removed from the common bile duct during the procedure. On the final image, the biliary stent is in the expected position. IMPRESSION: As above. Please correlate with live fluoroscopic imaging. Electronically signed by Reji Padilla 01/16/2019 1:04 PM
--- NOTE | 2019-01-16 13:23 | OPERATIVE NOTE ---
PROCEDURE DATE: 01/16/2019 PROCEDURES PERFORMED: 1. Endoscopic retrograde cholangiopancreatography. 2. Stent removal. 3. Stone removal with basket. 4. Stent placement. PREOPERATIVE DIAGNOSIS: Stent occlusion. POSTOPERATIVE DIAGNOSES: 1. Stent occlusion, removed and replaced. 2. Multiple common bile duct stones removed. DESCRIPTION OF PROCEDURE: After informed consent and adequate intravenous sedation, the scope was introduced in the esophagus, stomach, and duodenum. The stent is in proper place. This was totally occluded. This was removed. Cholangiogram revealed 3 large stones. These were removed with a basket. Lavage was done. At this point, there may still be a possibility of some small fragments. For this reason, a 10-Telugu, 5 cm stent was placed. The scope was withdrawn. The patient tolerated the procedure well without any immediate complications. cc: Santo Crespo MD
--- NOTE | 2019-01-16 14:18 | PROGRESS NOTE ---
DATE: 01/16/2019 SUBJECTIVE: This morning Ms. Hill referred to be doing okay. Denies any complaints. She was awaiting for the ERCP with possible stent removal today. OBJECTIVE: Vital signs: Blood pressure was 118/58, pulse of 69, respiration 14, temperature is 98.2 degrees. Patient was saturating 98% on room air. General: Ms. Hill is a 73-year-old female. She was in bed no distress. HEENT: Mucosa is pink and moist. Anicteric. Acyanotic. Neck: Supple. Chest: Clear to auscultation. No crepitations. No rhonchi. Cardiovascular: Regular rate and rhythm there was no murmurs no rubs no gallops. Abdomen: Soft, minimally tender in the epigastrium. Bowel sounds present. Extremities: No pedal edema. Distal pulses present. PHOTOGRAPHIC PRINTER: Patient is awake, alert, and oriented. There is no focal neurological deficit. LABORATORY DATA: CBC is reviewed is reviewed. Slight anemia with hemoglobin of 10.6. Chemistry is also reviewed all consistent with renal failure. Liver enzymes are trending down. Review all of the ERCP report suggests that there was a total occlusion of the stent. This was removed. Cholangiogram revealed 3 large stones which were removed with basket. Lavage was done and another stent was deployed. ASSESSMENT: 1. Recurrent epigastric pain, resolved. 2. 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 So far, the time the viral hepatitis workup has been negative. 3. Common bile duct stent with total occlusion associated with pneumobilia. The patient is status post stent removal and deployment of new stents. 4. Choledocholithiasis. The patient's stones have been removed during the ERCP and a new stent has been placed. 5. Mild constipation, improved. 6. End stage renal disease on scheduled hemodialysis. Nephrology has been consulted. Patient is due for dialysis today. In general I feel Ms. Hill is currently asymptomatic at the time of the encounter. I have reviewed the just finished ERCP. The findings have been noted. We will be waiting on her dialysis today and if it is okay with GI, we might be able to discharge her later on today or first thing tomorrow pending final recommendations from GI. cc: MD YANCY Vinson
--- NOTE | 2019-01-16 14:50 | NEPHROLOGY PROGRESS NOTE ---
DATE: 01/16/2019 DATE AND TIME: Date seen 01/16/2019. Time seen is 0845. SUBJECTIVE: Ms. Hill is resting quietly in bed. States that she is feeling just a little bit better. The patient had an ERCP, biliary and pancreatic exam per Dr. Modi. The common bile duct was slightly dilated and irregular. Three stones were removed from the common bile duct on the . She states that she is feeling slightly better. OBJECTIVE: Her most recent vital signs: Her last temperature is 98.3, blood pressure 133/66, heart rate 66, respirations 18. She is on room air. Last recorded saturation is 99%. She has had 0 recorded in. She has had 0 recorded out with need for dialysis. LABS: Sodium is 141, potassium 3.6, chloride 101, CO2 26, BUN 28, creatinine 3.3, glucose is 114. The patient has an anion gap of 14, calcium of 8.5, previous albumin of 4. She has a white count 5.11, hemoglobin 10.6, hematocrit 33, with a platelet count of 116,000. PHYSICAL EXAMINATION: General: This is a 73-year-old white female resting quietly in bed. Head of the bed is slightly elevated. She is in no acute distress. Skin: Warm and dry. HEENT: Normocephalic, atraumatic. Conjunctiva is pale pink. She has JERAMY. Mucous membranes are dry. Neck: Supple. Trachea midline. No evidence of JVD. Cardiovascular: She is regular rate and rhythm. No appreciable murmur or gallop. Lungs: Clear to auscultation anteriorly. Equal excursion on room air. Abdomen: Soft. She does have slight guarding. Tenderness to the left upper quadrant. Positive bowel sounds. Genitourinary: Not inspected. Minimal void with dialysis assist. Extremities: Have no edema. No clubbing or cyanosis. Dialysis tunnel catheter to the right chest wall. Neurologic: She is alert and oriented x 3. ASSESSMENT AND PLAN: 1. Chronic kidney disease stage 5D. The patient is due for her routine dialysis prescription today. We will place her on a 2 K bath. She is to dialyze for 3.5 hours. We will pull her to her outpatient dry weight. 2. Electrolytes and acid-base balance and anemia. These are all acceptable. 3. Chest pain, more than likely secondary to biliary stones. Followed by Gastroenterology and Primary Care. I would like to thank you for allowing us to follow with this patient. Dictated by SALVATORE Ramirez for Leonidas Howard MD cc: SALVATORE Ramirez MD
[2019-01-16] MEDS: FLONASE NAS SCH (18:02)
[2019-01-16] MEDS: PROTONIX PO SCH ×2 (18:03→22:28)
[2019-01-16] MEDS ORDERED: TYLENOL PO ONE (18:22)
[2019-01-16] MEDS ORDERED: ULTRAM PO PRN (18:23)
[2019-01-16] MEDS: ATARAX PO SCH (22:28)
[2019-01-17] MEDS: HUMALOG SUBQ SCH (06:11)
[2019-01-17] MEDS: SYNTHROID PO SCH (06:12)
[2019-01-17 07:56] VITALS: BP 96/39
[2019-01-17] MEDS: FLONASE NAS SCH (08:19)
[2019-01-17] MEDS: PROTONIX PO SCH (08:19)
[2019-01-17 08:45] LABS: ALB/GLOB RATIO 1.5; ALKALINE PHOSPHATASE 153 U/L (32-104); DIRECT BILIRUBIN < 0.20 mg/dL (0.00-0.20); GOT 76 U/L (10-30); GPT 176 U/L (10-36); TOTAL BILIRUBIN 0.56 mg/dL (0.20-1.00); TOTAL PROTEIN 6.7 g/dL (6.3-8.3)
--- NOTE | 2019-01-17 14:12 | GASTROENTEROLOGY PROGRESS NOTE ---
DATE: 01/17/2019 SUBJECTIVE: The patient is resting in bed. Family at the bedside. The patient is feeling better. She denies any fevers, rigors, chills. Denies any nausea or vomiting. She has not had a bowel movement now since admission. PHYSICAL EXAMINATION: Vital Signs: Temperature 98.1 degrees, pulse rate of 58, respiratory rate of 16, blood pressure 196/49, saturating 98% on room air. Body weight of 147 pounds 9.6 ounces. BMI 27 kg/m2. General Appearance: Moderately built, moderate nourished. Lying in bed, in no acute distress. HEENT: Pale conjunctivae. No icterus. Neck: Supple. Abdomen: There is discomfort in the periumbilical region. No rebound or guarding. Extremities: No cyanosis, clubbing. Neurologic: Alert, awake, oriented x3. LABS: Her total bilirubin is 0.56, direct of less than 0.2, AST 76, ALT 176, alkaline phosphatase 153. Liver enzymes are trending down. Total protein 6.2, albumin of 4. Urine culture is showing E. coli. IMPRESSION AND PLAN: 1. Common bile duct stent occlusion, status post endoscopic retrograde cholangiopancreatography with stent removal and removal of stones, and a new stent has been placed by Dr. Crespo. It is recommended that the patient follow up with Dr. Cerspo in 4 weeks in order to pursue repeat endoscopic retrograde cholangiopancreatography and stent removal. 2. Abdominal pain, is improving. 3. Transaminitis secondary to hepatocellular injury and choledocholithiasis. It is getting better. 4. Constipation. We will start on bowel regimen. 5. End-stage renal disease, on hemodialysis. Nephrology is on board. 6. Disposition. The patient would like to go home today. The patient was recommended to follow up with Dr. Crespo in 4 weeks. 7. Gastrointestinal prophylaxis. Proton pump inhibitors. 8. The above plans were discussed with the patient and family, and all questions were answered. cc: MD Georgina Victoria MD
--- NOTE | 2019-01-17 15:04 | NEPHROLOGY PROGRESS NOTE ---
DATE: 01/17/2019 SUBJECTIVE: Patient resting in bed. She has no real complaints today. OBJECTIVE: Vital Signs: Temperature 98.1, pulse 72, respiratory rate 18, blood pressure 114/67. Intake not measured. Output 1 L. General: This is an elderly female resting in bed. Awake and alert. No acute distress. HEENT: Normocephalic, atraumatic. JERAMY. Neck: Supple. No JVD. Cardiovascular: Regular rate and rhythm without murmur or gallop. Pulmonary: Clear bilaterally. Equal excursion. Abdomen: Soft, positive bowel sounds. Continue with tenderness left upper quadrant. Genitourinary: Minimal void. Extremities: No clubbing, cyanosis or edema. Integumentary: Skin is warm and dry. Chest: Tunnel dialysis catheter right upper chest wall. Clean, dry, and intact. LAB DATA: WBC 5.1, hemoglobin 10.6. AST 76, ALT 176, alkaline phosphatase 153. ASSESSMENT AND PLAN: 1. CKD 5D. The patient dialyzes on a Monday, Monday, Monday. We will continue her schedule while she is in the hospital. Check labs in the morning to determine her dialysis bath. 2. Biliary stones. She is followed by Gastroenterology and Primary. They are making a determination if they will keep her overnight or if they will go ahead and release her today. Dictated by SALVATORE Weller for Leonidas Howard MD cc: Leonidas Howard MD
--- NOTE | 2019-01-18 09:25 | DISCHARGE SUMMARY ---
ADMISSION DATE: 01/14/2019 DISCHARGE DATE: 01/17/2019 DISPOSITION: Home. FOLLOW-UP: 1. Dr. Calderon. 2. Dr. Modi. 3. Dr. Howard. CONSULTATIONS DURING ADMISSION: 1. Nephrology was consulted. Patient was seen by Dr. Howard. 2. GI was consulted. Patient was seen by Dr. Modi. INVASIVE PROCEDURES DONE DURING THIS ADMISSION: ERCP was done, a stent removal and stone removal with basket, and a new stent placement were all done by Dr. Crespo on 01/16/2019. ADMISSION DIAGNOSES: 1. Epigastric pain. 2. Hypothyroid. 3. Diabetes mellitus. 4. Hypertension. DIAGNOSES AT THE TIME OF DISCHARGE: 1. Recurrent epigastric pains associated with choledocholithiasis. 2. Transaminitis due to choledocholithiasis. 3. CBD stent total occlusion associated with pneumobilia. The patient is status post stent removal and deployment of a new stent. 4. Choledocholithiasis. Stones were removed during the ERCP. 5. Mild constipation improved. 6. Endstage renal disease on hemodialysis. 7. ESBL in the urine. However, patient is completely asymptomatic so I think this is asymptomatic bacteriuria, and does not need treatment. 8. Hypothyroidism. DISCHARGE MEDICATIONS: 1. Pantoprazole 40 mg daily. 2. Levothyroxine 50 mcg p.o. daily. 3. Crestor 10 mg daily. 4. Fluticasone 1 as needed. PRESENTING COMPLAINT: Epigastric pain. HISTORY OF PRESENTING COMPLAINT: Ms. Hill is a 73-year-old female who presented to the emergency department because of epigastric pain. The patient was evaluated and initial chest x-ray showed mild prominent heart. A CT scan of the abdomen and pelvis did show fatty liver and cholecystectomy with common bile stent and pneumobilia. It was felt that the GI symptoms were related to the stent. GI was consulted. Patient was seen by Dr. Modi. A decision was made to remove the stent since it has been there for a very long time. An ERCP was successfully done by Dr. Crespo. The stent was removed. Other stones were also removed, and a new stent was placed. Patient's liver enzymes continued to trend down and white cell count has been normal. The patient has been afebrile, and she is doing a lot better. A urinalysis was done for some reason, and it shows less than 10,000 of formation colonies ESBL. The patient is completely asymptomatic so we think this is an asymptomatic bacteriuria, and does not need to be treated. The patient has not had any urological instrumentation, and she is not . This morning Ms. Hill refers to be doing a lot better. Her vitals are stable. Blood pressure is 114/57, pulse of 77, respirations 16, and temperature 98.7. Physical exam is completely unremarkable. Ms. Hill is tolerating her diet, and she is clinically stable for discharge today. All the discharge instructions have been discussed with her and she voiced understanding. TIME SPENT: Time spent for discharge is 35 minutes. cc: MD Dr. Kvng Vinson MD Reginald D. Gladish, MD
== END 2019-01-17 15:00 | disposition home or self-care (01) | DRG 919 ==
LOC: SUPCPDRO → ED 06:47 → 3N 19:52 → SUATTDRO 19:52 → 3N 01-17 09:02
PROVIDERS: ATTEND Internal Medicine
PROC: EN.ERCP (2019-01-16 11:43)
CPT/HCPCS: 71020; 71046; 74176; 74330; 76700; 80053; 80069; 80074; 80076; 81001; 82550; 82948; 83690; 83880; 84443; 84484; 85025; 85027; 85610; 85730; 87077; 87088; 87186; 93005; 93010; 99285; A9270; J1644; J1815; J3010; J7030; Q9966; Q9967; XXXXX